=== PATIENT | female | born 1965 | race Caucasian/White ===

== ENCOUNTER 2017-08-12 20:51 | Emergency (ER) | payer OTHER ==
[2015-10-21 18:30] VITALS: BP 135/70
== END 2017-08-12 21:19 | disposition left against medical advice (07) ==
LOC: ER 20:51
DX: Z53.21 Procedure and treatment not carried out due to patient leaving prior to being seen by health care provider (principal)

== ENCOUNTER 2018-01-13 03:27 | Emergency (ER) | payer OTHER ==
[2018-01-13 03:53] LABS: ADD MAN DIFF? NO
[2018-01-13 03:59] LABS: BASO # 0.1 x10^3/uL (0.0-0.2); BASO % 1 % (0-3); EOS # 0.2 x10^3/uL (0.0-0.7); EOS % 2 % (0-3); HEMATOCRIT 43.8 % (36.0-47.0); HEMOGLOBIN 14.8 g/dL (12.0-15.5); LYMPH # 2.6 x10^3/uL (1.0-4.8); LYMPH % 29 % (24-48); MEAN CORPUSCULAR HEMOGLOBIN 29 pg (25-35); MEAN CORPUSCULAR HGB CONC 34 g/dL (31-37); MEAN CORPUSCULAR VOLUME 87 fL (79-100); MONO # 0.5 x10^3/uL (0.0-1.1); MONO % 6 % (0-9); NEUT # 5.5 x10^3uL (1.8-7.7); NEUT % 62 % (31-73); PLATELET COUNT 269 x10^3/uL (140-400); RED BLOOD COUNT 5.05 x10^6/uL (3.50-5.40); RED CELL DISTRIBUTION WIDTH 12.8 % (11.5-14.5); WHITE BLOOD COUNT 8.9 x10^3/uL (4.0-11.0)
[2018-01-13 04:04] LABS: ANION GAP 10 (6-14); BLOOD UREA NITROGEN 14 mg/dL (7-20); CALCIUM 9.3 mg/dL (8.5-10.1); CARBON DIOXIDE 28 mmol/L (21-32); CHLORIDE 102 mmol/L (98-107); GFR 58.2; GLUCOSE 155 mg/dL (70-99); POTASSIUM 3.9 mmol/L (3.5-5.1); SODIUM 140 mmol/L (136-145)
[2018-01-13] MEDS: IV NORMAL SALINE 1000ML BAG 1,000 ML IV (04:10)
[2018-01-13 04:16] LABS: TROPONINI < 0.017 ng/mL (0.000-0.055)
[2018-01-13] MEDS: ASPIRIN CHEWABLE 81 MG TABLET. PO (05:24)
== END 2018-01-13 06:11 | disposition home or self-care (01) ==
LOC: ER 03:27
DX: R07.89 Other chest pain (principal); R11.0 Nausea; M32.9 Systemic lupus erythematosus, unspecified; Z90.49 Acquired absence of other specified parts of digestive tract; Z88.5 Allergy status to narcotic agent; Z88.8 Allergy status to other drugs, medicaments and biological substances
CPT/HCPCS: 36415; 71045; 80048; 84484; 85025; 93005; 96360; 99285-25; J7030

== ENCOUNTER 2018-07-18 08:37 | Emergency (ER) | payer OTHER ==
[~2018-07-18] VITALS: Ht 172.7 cm; Wt 108.4 kg
[2018-07-18] MEDS ORDERED: ONDANSETRON PF 4 MG/2 ML VIAL. IV ONE (09:00)
[2018-07-18] MEDS ORDERED: methylPREDNISolone SOD SUCC PF 125 MG/2 ML VIAL. IV ONE (09:00)
[2018-07-18] MEDS ORDERED: IV NORMAL SALINE 1000ML BAG 1,000 ML IV ONE (09:00)
--- NOTE | 2018-07-18 09:14 | PHYS DOC ---
Past Medical History Past Medical History: Migraines, Other Additional Past Medical Histor: lupus, pvcs Past Surgical History: Appendectomy, Cholecystectomy Alcohol Use: None Drug Use: None Adult General Chief Complaint Chief Complaint: NEURO SYMPTOMS/DEFICITS HPI HPI Patient is a 52 year old female with history of migraine headaches who presents today complaining of 4 out of 10 generalized migraine headache that has been going on intermittently for 2 days. Patient is also complaining of nausea, dizziness, and sensation of pins and needles to the right side of her body that began this morning. She states her dizziness is worse when she gets up and starts moving. Patient states she took ibuprofen this morning with no relief of her symptoms. PCP Dr. Collado Review of Systems Review of Systems Constitutional: Denies fever or chills [] Eyes: Denies change in visual acuity, redness, or eye pain [] HENT: Denies nasal congestion or sore throat [] Respiratory: Denies cough or shortness of breath [] Cardiovascular: No additional information not addressed in HPI [] GI: Reports nausea. Denies abdominal pain, vomiting, bloody stools or diarrhea [ ] : Denies dysuria or hematuria [] Musculoskeletal: Denies back pain or joint pain [] Integument: Denies rash or skin lesions [] Neurologic: Reports headache with sensation of pins and needles to the right side of the body, denies focal weakness or sensory changes [] All other systems were reviewed and found to be within normal limits, except as documented in this note. Current Medications Current Medications Current Medications Medications (Trade) Dose Ordered Sig/Camryn Start Time Stop Time Status Last Admin Dose Admin Lorazepam (Ativan) 1 mg 1X ONCE 07/18/18 10:15 07/18/18 10:16 DC 07/18/18 10:38 1 MG Methylprednisolone Sodium Succinate (SOLU-Medrol 125MG VIAL) 125 mg 1X ONCE 07/18/18 09:00 07/18/18 09:04 DC 07/18/18 09:32 125 MG Ondansetron HCl (Zofran) 4 mg 1X ONCE 07/18/18 09:00 07/18/18 09:04 DC 07/18/18 09:32 4 MG Sodium Chloride 1,000 ml @ 1,000 mls/hr 1X ONCE 07/18/18 09:00 07/18/18 09:59 DC 07/18/18 09:32 1,000 MLS/HR Allergies Allergies Allergies Coded Allergies Type Severity Reaction Last Updated Verified codeine Allergy Intermediate swelling 10/21/15 Yes morphine Adverse Reaction Intermediate vomiting 10/21/15 Yes prochlorperazine Adverse Reaction Intermediate combative 10/21/15 Yes Physical Exam Physical Exam Constitutional: Well developed, well nourished, no acute distress, non-toxic appearance. [] HENT: Normocephalic, atraumatic, bilateral external ears normal, oropharynx moist, no oral exudates, nose normal. [] Eyes: PERRLA, EOMI, conjunctiva normal, no discharge. [] Neck: Normal range of motion, no tenderness, supple, no stridor. [] Cardiovascular:Heart rate regular rhythm, no murmur [] Lungs & Thorax: Bilateral breath sounds clear to auscultation [] Abdomen: Bowel sounds normal, soft, no tenderness, no masses, no pulsatile masses. [] Skin: Warm, dry, no erythema, no rash. [] Back: No tenderness, no CVA tenderness. [] Extremities: No tenderness, no cyanosis, no clubbing, ROM intact, no edema. [] Neurologic: Alert and oriented X 3, normal motor function, normal sensory function, no focal deficits noted. Cranial nerves II through XII intact Psychologic: Affect normal, judgement normal, mood normal. [] Current Patient Data Vital Signs Vital Signs Date Time Temp Pulse Resp B/P (MAP) Pulse Ox O2 Delivery O2 Flow Rate FiO2 07/18/18 12:08 86 18 94 07/18/18 08:45 97.9 151/86 (107) Room Air 97.9 Lab Values Laboratory Tests Test 07/18/18 08:50 07/18/18 09:05 07/18/18 09:55 Glucose (Fingerstick) 185 mg/dL (70-99) H White Blood Count 6.2 x10^3/uL (4.0-11.0) Red Blood Count 4.76 x10^6/uL (3.50-5.40) Hemoglobin 14.3 g/dL (12.0-15.5) Hematocrit 41.1 % (36.0-47.0) Mean Corpuscular Volume 86 fL (79-100) Mean Corpuscular Hemoglobin 30 pg (25-35) Mean Corpuscular Hemoglobin Concent 35 g/dL (31-37) Red Cell Distribution Width 12.4 % (11.5-14.5) Platelet Count 235 x10^3/uL (140-400) Neutrophils (%) (Auto) 64 % (31-73) Lymphocytes (%) (Auto) 27 % (24-48) Monocytes (%) (Auto) 6 % (0-9) Eosinophils (%) (Auto) 3 % (0-3) Basophils (%) (Auto) 1 % (0-3) Neutrophils # (Auto) 4.0 x10^3uL (1.8-7.7) Lymphocytes # (Auto) 1.7 x10^3/uL (1.0-4.8) Monocytes # (Auto) 0.3 x10^3/uL (0.0-1.1) Eosinophils # (Auto) 0.2 x10^3/uL (0.0-0.7) Basophils # (Auto) 0.0 x10^3/uL (0.0-0.2) Prothrombin Time 13.2 SEC (11.7-14.0) Prothrombin Time INR 1.1 (0.8-1.1) PTT 33 SEC (24-38) Sodium Level 136 mmol/L (136-145) Potassium Level 4.0 mmol/L (3.5-5.1) Chloride Level 104 mmol/L (98-107) Carbon Dioxide Level 27 mmol/L (21-32) Anion Gap 5 (6-14) L Blood Urea Nitrogen 12 mg/dL (7-20) Creatinine 0.8 mg/dL (0.6-1.0) Estimated GFR (Cockcroft-Gault) 75.3 BUN/Creatinine Ratio 15 (6-20) Glucose Level 192 mg/dL (70-99) H Calcium Level 8.6 mg/dL (8.5-10.1) Magnesium Level 2.1 mg/dL (1.8-2.4) Total Bilirubin 0.4 mg/dL (0.2-1.0) Aspartate Amino Transferase (AST) 42 U/L (15-37) H Alanine Aminotransferase (ALT) 85 U/L (14-59) H Alkaline Phosphatase 129 U/L (46-116) H Creatine Kinase 120 U/L (26-192) Creatine Kinase MB (Mass) 0.6 ng/mL (0.0-3.6) Creatine Kinase MB Relative Index 0.5 % (0-4) Troponin I Quantitative < 0.017 ng/mL (0.000-0.055) UC-Noo-H-Type Natriuretic Peptide 15 pg/mL (0-124) Total Protein 7.6 g/dL (6.4-8.2) Albumin 3.5 g/dL (3.4-5.0) Albumin/Globulin Ratio 0.9 (1.0-1.7) L Thyroid Stimulating Hormone (TSH) 2.745 uIU/mL (0.358-3.74) Urine Collection Type Void Urine Color Yellow Urine Clarity Clear Urine pH 6.0 Urine Specific [place] 1.020 Urine Protein 30 mg/dL (NEG-TRACE) Urine Glucose (UA) Negative mg/dL (NEG) Urine Ketones (Stick) Negative mg/dL (NEG) Urine Blood Negative (NEG) Urine Nitrite Negative (NEG) Urine Bilirubin Negative (NEG) Urine Urobilinogen Dipstick 0.2 mg/dL (0.2 mg/dL) Urine Leukocyte Esterase Negative (NEG) Urine RBC 0 /HPF (0-2) Urine WBC Occ /HPF (0-4) Urine Squamous Epithelial Cells Few /LPF Urine Bacteria Few /HPF (0-FEW) Urine Mucus Slight /LPF Urine Opiates Screen Neg (NEG) Urine Methadone Screen Neg (NEG) Urine Barbiturates Neg (NEG) Urine Phencyclidine Screen Neg (NEG) Urine Amphetamine/Methamphetamine Neg (NEG) Urine Benzodiazepines Screen Neg (NEG) Urine Cocaine Screen Neg (NEG) Urine Cannabinoids Screen Neg (NEG) Urine Ethyl Alcohol Neg (NEG) Laboratory Tests 07/18/18 09:05 Laboratory Tests 07/18/18 09:05 EKG EKG 08:[address] Cisneros sinus rhythm heart rate 91 no STEMI[] Radiology/Procedures Radiology/Procedures []PROCEDURE: PORTABLE CHEST 1V EXAM: CHEST 1 VIEW History: Dizziness COMPARISON: 01/13/2018 TECHNIQUE: Single portable radiograph of the chest FINDINGS: The cardiac silhouette is unremarkable. The lungs are clear bilaterally. The costophrenic sulci are clear and well demarcated. IMPRESSION: No radiographic evidence of an acute cardiopulmonary process. Electronically signed by: Jaxson Mendez MD (07/18/2018 9:43 AM) [id number] DICTATED and SIGNED BY: JAXSON MENDEZ MD DATE: 07/18/1842 PROCEDURE: CT HEAD WO CONTRAST CT HEAD INDICATION: DIZZINESS, HEADACHE, TINGLING RT SIDE, X 2 DAYS, FALL RISK COMPARISON: None Available. TECHNIQUE: 5 mm contiguous axial images were obtained from the skull base to the vertex. Exposure: One or more of the following individualized dose reduction techniques were utilized for this examination: 1. Automated exposure control 2. Adjustment of the mA and/or kV according to patient size 3. Use of iterative reconstruction technique FINDINGS: No abnormal attenuation within the brain parenchyma. No evidence of acute intracranial hemorrhage. No extra-axial fluid collections. No mass effect or midline shift. Ventricular size is appropriate. Basal cisterns are patent. No fractures identified.Reddy-white differentiation is preserved.Globes and orbits are within normal limits. Paranasal sinuses and mastoid air cells are clear. IMPRESSION: No acute intracranial findings. Electronically signed by: Jaxson Mendez MD (07/18/2018 9:54 AM) [id number] DICTATED and SIGNED BY: JAXSON MENDEZ MD DATE: 07/18/18950 Course & Med Decision Making Course & Med Decision Making Pertinent Labs and Imaging studies reviewed. (See chart for details) This is a 52-year-old female patient presenting to the ED today complaining of a headache for 2 days, dizziness, nausea, sensation of pins and needles to the right side of the body since this morning. Has history of migraine headaches. FAST exam for stroke is negative. NIH scale is one for having difference in sensation to the right upper extremity. CBC with no acute findings, CMP with AST of 42 ALT 85 ALT 129, patient states this is chronic, she states she has history of elevated liver enzymes from steroid use due to her lupus. CT of the head is negative for any acute findings, chest x-ray is negative for any acute findings, EKG was negative for any acute findings. Nursing staff informed me patient had a seizure. Dr. Cisneros evaluated patient during the seizure, he states it was not a true seizure-patient was given Ativan. I went and reevaluated patient, she states she has history of seizures and is supposed to be on Depakote. She states she has not taken the Depakote for long time. She states she also has a neurologist. Patient was up and ambulated with no difficulties. Offered patient admission to the hospital, she states she would like to go home and follow up with her own doctor. She states her pain is been relieved. She requested prescription for Depakote which was given. She states she'll follow- up with the neurologist as soon as she can as well as her own primary care doctor. Staff Physician Addendum: I was working in the ER during the course of this patient's visit. I was available for consultation as needed, I did briefly evaluate this patient was reported seizure activity. It was not infected seizure however she said she thought she might be having a seizure her eyes were fluttering she appeared anxious she received Ativan she improved she wanted to go home and was discharged in stable condition. Dragon Disclaimer Dragon Disclaimer This electronic medical record was generated, in whole or in part, using a voice recognition dictation system. Departure Departure Impression: Primary Impression: Headache Additional Impressions: Dizziness Seizure disorder Disposition: HOME, SELF-CARE Condition: STABLE Referrals: NO PCP (PCP) TIARRA DEE MD Follow-up with your neurologist or the provided neurologist as soon as possible. Patient Instructions: Dizziness, Gras-bb-Icot, Migraine Headache Additional Instructions: Your CT of the head was negative for any acute findings, you need to follow-up with your neurologist as soon as possible. Ensure you are taking your seizure medicines. Also follow-up with your primary care doctor. Come back to the emergency room at any point symptoms worsen. Scripts Ondansetron (ZOFRAN ODT) 4 Mg Tab.rapdis 1 TAB SL Q8HRS, #15 TAB Prov: MARTINA ULLOA APRN 07/18/18 Divalproex Sodium (DEPAKOTE) 500 Mg Tablet. 500 MG PO DAILY, #30 TAB Prov: MARTINA ULLOA APRN 07/18/18 Problem Qualifiers Primary Impression: Headache Headache type: unspecified Headache chronicity pattern: chronic headache Intractability: not intractable Qualified Codes: R51 - Headache MARTINA ULLOA LORELEI Jul 18, 2018 09:14 ROSY CISNEROS MD Jul 18, 2018 12:28
[2018-07-18 09:17] LABS: BASO % 1 % (0-3); EOS # 0.2 x10^3/uL (0.0-0.7); EOS % 3 % (0-3); HEMATOCRIT 41.1 % (36.0-47.0); HEMOGLOBIN 14.3 g/dL (12.0-15.5); LYMPH # 1.7 x10^3/uL (1.0-4.8); LYMPH % 27 % (24-48); MEAN CORPUSCULAR HEMOGLOBIN 30 pg (25-35); MEAN CORPUSCULAR HGB CONC 35 g/dL (31-37); MEAN CORPUSCULAR VOLUME 86 fL (79-100); MONO # 0.3 x10^3/uL (0.0-1.1); MONO % 6 % (0-9); NEUT % 64 % (31-73); PLATELET COUNT 235 x10^3/uL (140-400); RED BLOOD COUNT 4.76 x10^6/uL (3.50-5.40); RED CELL DISTRIBUTION WIDTH 12.4 % (11.5-14.5); WHITE BLOOD COUNT 6.2 x10^3/uL (4.0-11.0)
[2018-07-18 09:29] LABS: PROTHROMBIN TIME PATIENT 13.2 SEC (11.7-14.0)
[2018-07-18 09:31] LABS: CALCIUM 8.6 mg/dL (8.5-10.1); CREATININE 0.8 mg/dL (0.6-1.0); GFR 75.3
--- NOTE | 2018-07-18 09:33 | EKG ---
[facility] [address] [place] [address] Test Date: 2018-07-18 Test Time: 08:51:09 Pat Name: PADMA DOW Department: Room: Gender: F Vault Attendant: MICHAEL : 1965 Requested By: MARTINA ULLOA Order Number: [id number] Reading MD: Dickson Lu MD Measurements Intervals Fate Rate: 91 P: 42 WA: 150 QRS: 15 QRSD: 86 T: 22 QT: 354 QTc: 437 Interpretive Statements SINUS RHYTHM Electronically Signed On 07-19-2018 13:46:13 CDT by Dickson Lu MD
[2018-07-18 09:37] LABS: ALBUMIN 3.5 g/dL (3.4-5.0); ALBUMIN/GLOBULIN RATIO 0.9 (1.0-1.7); MAGNESIUM 2.1 mg/dL (1.8-2.4); TOTAL BILIRUBIN 0.4 mg/dL (0.2-1.0); TOTAL PROTEIN 7.6 g/dL (6.4-8.2)
--- NOTE | 2018-07-18 09:46 | RAD ---
EXAM: CHEST 1 VIEW History: Dizziness COMPARISON: 01/13/2018 TECHNIQUE: Single portable radiograph of the chest FINDINGS: The cardiac silhouette is unremarkable. The lungs are clear bilaterally. The costophrenic sulci are clear and well demarcated. IMPRESSION: No radiographic evidence of an acute cardiopulmonary process. Electronically signed by: Jaxson Mendez MD (07/18/2018 9:43 AM) [id number]
--- NOTE | 2018-07-18 09:57 | RAD ---
CT HEAD INDICATION: DIZZINESS, HEADACHE, TINGLING RT SIDE, X 2 DAYS, FALL RISK COMPARISON: None Available. TECHNIQUE: 5 mm contiguous axial images were obtained from the skull base to the vertex. Exposure: One or more of the following individualized dose reduction techniques were utilized for this examination: 1. Automated exposure control 2. Adjustment of the mA and/or kV according to patient size 3. Use of iterative reconstruction technique FINDINGS: No abnormal attenuation within the brain parenchyma. No evidence of acute intracranial hemorrhage. No extra-axial fluid collections. No mass effect or midline shift. Ventricular size is appropriate. Basal cisterns are patent. No fractures identified.Reddy-white differentiation is preserved.Globes and orbits are within normal limits. Paranasal sinuses and mastoid air cells are clear. IMPRESSION: No acute intracranial findings. Electronically signed by: Jaxson Mendez MD (07/18/2018 9:54 AM) [id number]
[2018-07-18 10:19] LABS: BILIRUBIN,URINE NEGATIVE (NEG); CLARITY,URINE CLEAR; COLOR,URINE YELLOW; NITRITE,URINE NEGATIVE (NEG); PROTEIN,URINE 30 mg/dL (NEG-TRACE); UROBILINOGEN,URINE 0.2 mg/dL (0.2 mg/dL)
[2018-07-18 10:27] LABS: BARBITURATES NEG (NEG); BENZODIAZEPINES NEG (NEG); CANNABINOIDS NEG (NEG); COCAINE NEG (NEG); METHADONE NEG (NEG); OPIATES NEG (NEG); PHENCYCLIDINE NEG (NEG)
[2018-07-18 10:29] LABS: BACTERIA,URINE FEW /HPF (0-FEW); RBC,URINE 0 /HPF (0-2); SQUAMOUS EPITHELIAL CELL,UR FEW /LPF; WBC,URINE OCC /HPF (0-4)
[2018-07-18 10:30] LABS: AMPHETAMINE/METHAMPHETAMINE NEG (NEG)
[2018-07-18] MEDS ORDERED: DIVA500T2 PO (11:57)
[2018-07-18] MEDS ORDERED: ONDA4TAB10 SL (11:57)
[2018-07-18 12:08] VITALS: BP 128/77
== END 2018-07-18 12:24 | disposition home or self-care (01) ==
LOC: ER 08:37
DX: G40.802 Other epilepsy, not intractable, without status epilepticus (principal); R51 Headache; R42 Dizziness and giddiness; Z90.49 Acquired absence of other specified parts of digestive tract; Z88.5 Allergy status to narcotic agent; Z88.8 Allergy status to other drugs, medicaments and biological substances
CPT/HCPCS: 36415; 70450; 71045; 80053; 80307; 81001; 82553; 82962; 83735; 83880; 84443; 84484; 85025; 85610; 85730; 93005; 96361; 96374; 96375; 99285; J2060; J2405; J2930; J7030; G0479

== ENCOUNTER → 2021-06-03 | Outpatient (CLI) | payer OTHER ==
[2021-06-03] VITALS (10 sets, daily range): BP systolic 121–150; BP diastolic 61–87
[~2021-06-03] VITALS: Ht 172.7 cm; Wt 105.9 kg
[~2021-06-03] MED LIST: DIVA500T2 PO; HEPARIN for IV BOLUS 10,000 UNIT/10 ML VIAL. IART ONE; HEPARIN for IV BOLUS 10,000 UNIT/10 ML VIAL. ONE; IODIXANOL 320 MG/ML 100 ML VIAL. IART ONE; IODIXANOL 320 MG/ML 100 ML VIAL. ONE; ISOS30TA68 PO; LIDOCAINE 1% PF 2 ML VIAL. INJ ONE; LIDOCAINE 1% PF 2 ML VIAL. ONE; METF10007 PO; METO25TA4 PO; MIDAZOLAM HCL/PF 2 MG/2 ML VIAL. IV ONE; MIDAZOLAM HCL/PF 2 MG/2 ML VIAL. ONE; NITROGLYCERIN 200 MCG/2 ML SYRINGE FOR CATH/VASC LAB. IART ONE; NITROGLYCERIN 200 MCG/2 ML SYRINGE FOR CATH/VASC LAB. ONE; ONDA4TAB10 SL; VERAPAMIL 5 MG/2 ML VIAL. IART ONE; VERAPAMIL 5 MG/2 ML VIAL. ONE; fentaNYL PF VIAL 100 MCG/2 ML VIAL IV ONE; fentaNYL PF VIAL 100 MCG/2 ML VIAL ONE
[2021-06-03 10:03] LABS: HEMATOCRIT 39.7 % (36.0-47.0); HEMOGLOBIN 13.4 g/dL (12.0-15.5); RED BLOOD COUNT 4.6 x10^6/uL (3.50-5.40); RED CELL DISTRIBUTION WIDTH 12.8 % (11.5-14.5); WHITE BLOOD COUNT 5.7 x10^3/uL (4.0-11.0)
[2021-06-03 10:11] LABS: CALCIUM 8.9 mg/dL (8.5-10.1); CREATININE 0.8 mg/dL (0.6-1.0); GFR 74.5; POTASSIUM 3.9 mmol/L (3.5-5.1)
--- NOTE | 2021-06-03 11:02 | PDOC ---
MODERATE SEDATION ASSESSMENT RISKS/ALTERNATIVES Risks/Alternatives Risks and alternatives of this type of sedation and procedure discussed with: RISK/ALTERNATIVES: Patient H & P ON CHART H & P H & P on chart and reviewed for co-morbid conditions and appropriate labs. H&P ON CHART: Yes STATUS PREG STATUS ASSESSED: N/A MEDS/ALLERGIES REVIEWED Meds/Allergies Reviewed Medications and Allergies including time and route of recently administered narcotics and sedatives. MEDS/ALLERGIES REVIEWED: Yes ASA RATING ASA RATING: II AIRWAY ASSESSMENT Airway Assessment Airway patency, oral function limitations, presence of caps, crowns, dentures, partials, and ability to extend neck assessed. AIRWAY ASSESSMENT: Yes MALLAMPATI SCORE MALLAMPATI SCORE: II PRE-SEDATION ASSESSMENT PRE-SEDATION ASSESSMENT: Yes ALEYDA BOX MD Jun 03, 2021 11:02
--- NOTE | 2021-06-03 13:20 | NUR ---
DISCHARGE INSTRUCTIONS GIVEN. PT'S LEFT FOREARM PIV REMAINS INTACT FOR ECHOCARDIOGRAM. RIGHT RADIAL SITE IS INTACT, DRESSING CHANGED AND ARMBOARD REAPPLIED. VSS. NO COMPLAINTS. PT TAKEN TO ECHO WITH HER AND WILL DC FROM THAT LOCATION.
--- NOTE | 2021-06-03 15:57 | CARD ---
MR#: [id number] Date of Study: 06/03/2021 Ordering Physician: ALEYDA BOX, Referring Physician: ALEYDA BOX, Tech: RT Jorge(R) APPROVED REPORT Technologist: RT Jorge(R) Nurse: Marian Anton RN Procedure(s) performed: FL TIME: 1.7 MINS DOSE: 38 GYCM2 CONTRAST: 38 ML MODERATE SEDATION: 20 MINS LHC, Coronary angiography [facility] Clinical Frailty Scale [facility] Clinical Frailty Scale: Managing Well Heart Failure Heart Failure: No CASE TECHNIQUE IV conscious sedation was used throughout procedure with appropriate monitoring and was performed in the presence of a registered nurse who was an independent trained observer other than the physician p erforming the procedure. During this case, Fluoroscopy and low osmolar contrast were used for imaging . Specimen(s) Removed: N/A Estimated Blood loss: 15 cc's. PROCEDURE NARRATIVE Clinical information: 55 old woman presents to the catheterization laboratory in the setting of an abnormal stress test. Informed consent: Written informed consent was obtained from the patient after adequate discussion of the risks and monika efits of the procedure. Procedure details: ACCESS: The right wrist was prepped and draped in usual sterile fashion. Under 1% lidocaine local anesthesia a 6 [place] Terumo sheath was placed in the right radial artery via the Seldinger technique. DIAGNOSTIC ANGIOGRAPHY: Right and left coronary arteries were engaged with a 6 [place] TIG catheter. Diagnostic angiography i n multiple views were obtained. Next, a 6 [place] TIG catheter was placed in the left ventricle and a LVEDP was measured. A pullback was performed. All catheters were exchanged over J-tip guidewire. FINDINGS: ======= Aorta: 110/80 LVEDP: 15 mmHg Left ventriculogram: Deferred due to known normal ejection fraction by stress testing. Coronary angiography: LM: Large caliber vessel with normal angiographic appearance LAD: Large caliber vessel with mild luminal irregularities D1: Small caliber vessel with normal angiographic appearance D2: Small caliber vessel with a proximal to mid 40-50% stenosis. LCX: Moderate caliber non-dominant vessel with mild luminal irregularities OM1: Small to moderate caliber vessel with normal angiographic appearance RCA: Large caliber dominant vessel with a proximal 20% stenosis RPDA: Moderate caliber vessel with a proximal 20% stenosis. CLOSURE: At case completion the right radial sheath was removed and a Terumo radial band was applied with 11 m L of air. Hemostasis was achieved. COMPLICATIONS: No acute complications noted Conclusion 1. Normal left-sided filling pressures 2. Mild nonobstructive coronary artery disease Recommendations Aggressive Medical Therapy Signed by : Aleyda Box, Electronically Approved : 06/03/2021 15:56:42
--- NOTE | 2021-06-04 11:02 | CARD ---
MR#: [id number] Date of Study: 06/03/2021 Ordering Physician: ALEYDA BOX, Referring Physician: ALEYDA BOX, Tech: Errol Eubanks [facility] APPROVED REPORT EXAM: Two-dimensional and M-mode echocardiogram with Doppler and color Doppler. Other Information Quality : AverageFairHR: 79bpm Rhythm : NSR INDICATION Abnormal stress echo RISK FACTORS Obesity 2D DIMENSIONS IVSd1.1 (0.7-1.1cm)LVDd4.6 (3.9-5.9cm) LVOT Diameter1.8 (1.8-2.4cm)PWd1.1 (0.7-1.1cm) LVDs2.9 (2.5-4.0cm)FS (%) 37.5 % SV66.9 mlLVEF(%)67.5 (>50%) Aortic Valve AoV Peak Jordon.141.2cm/sAoV VTI29.0cm AO Peak GR.8.0mmHgLVOT Peak Jordon.102.9cm/s LVOT VTI 21.07cmAO Mean GR.4mmHg NAVNEET (VMAX)1.40uw8IIT (VTI)1.90cm2 Mitral Valve MV E Drrckqol80.1cm/sMV DECEL SOHW111ss MV A Qutexdot08.3cm/sMV OAR42yc E/A Ratio0.9MVA (PHT)3.21cm2 TDI E/Lateral E'7.4E/Medial E'10.2 Pulmonary Valve PV Peak Vvrxueig719.4cm/sPV Peak Grad.4mmHg Tricuspid Valve TR P. Sknnlahs814me/sTR Peak Gr.19mmHg Pulmonary Vein S1 Hmfyievs75.9cm/sD2 Jehhjtar15.5cm/s LEFT VENTRICLE The left ventricle is normal size. There is normal left ventricular wall thickness. The left ventricu lar systolic function is normal and the ejection fraction is within normal range. EF 55% There is nor mal LV segmental wall motion. Transmitral Doppler flow pattern is Grade I-abnormal relaxation pattern . No left ventricle thrombus noted on this study. There is no ventricular septal defect visualized. T here is no left ventricular aneurysm. There is no mass noted in the left ventricle. RIGHT VENTRICLE The right ventricle is normal size. There is normal right ventricular wall thickness. The right ventr icular systolic function is normal. ATRIA The left atrium size is normal. The right atrium size is normal. The interatrial septum is intact wit h no evidence for an atrial septal defect or patent foramen ovale as noted on 2-D or Doppler imaging. AORTIC VALVE The aortic valve is thickened but opens well. Doppler and Color Flow revealed no significant aortic r egurgitation. There is no significant aortic valvular stenosis. There is no aortic valvular vegetatio n. MITRAL VALVE The mitral valve is normal in structure and function. There is no evidence of mitral valve prolapse. There is no mitral valve stenosis. Doppler and Color-flow revealed trace mitral regurgitation. TRICUSPID VALVE The tricuspid valve is normal in structure and function. Doppler and Color Flow revealed trace tricus pid regurgitation. There is no tricuspid valve prolapse or vegetation. There is no tricuspid valve st enosis. PULMONIC VALVE Doppler and Color Flow revealed no pulmonic valvular regurgitation. There is no pulmonic valvular emilia nosis. GREAT VESSELS The aortic root is normal in size. The ascending aorta is normal in size. The IVC is normal in size a nd collapses >50% with inspiration. PERICARDIAL EFFUSION There is no pleural effusion. There is no evidence of significant pericardial effusion. Critical Notification Critical Value: No <Conclusion> The left ventricular systolic function is normal and the ejection fraction is within normal range. EF 55% There is normal LV segmental wall motion. Signed by : Aleyda Box, Electronically Approved : 06/04/2021 11:02:34
== END | disposition home or self-care (01) ==
LOC: CCL 08:40
PROVIDERS: ATTEND Internal Medicine Cardiovascular Disease
DX: R94.39 Abnormal result of other cardiovascular function study (principal); I25.10 Atherosclerotic heart disease of native coronary artery without angina pectoris; I10 Essential (primary) hypertension; E11.9 Type 2 diabetes mellitus without complications; M19.90 Unspecified osteoarthritis, unspecified site; Z79.84 Long term (current) use of oral hypoglycemic drugs; Z79.899 Other long term (current) drug therapy; Z90.49 Acquired absence of other specified parts of digestive tract; Z98.890 Other specified postprocedural states; Z88.5 Allergy status to narcotic agent; Z88.6 Allergy status to analgesic agent; Z88.8 Allergy status to other drugs, medicaments and biological substances; Z20.822 Contact with and (suspected) exposure to COVID-19
CPT/HCPCS: 36415; 80048; 85027; 87426; 93306; 93458; 99152; C1769; C1894; J1644; J2250; J3010; J3490; Q9967